=== PATIENT | male | born 2000 | race Caucasian/White ===

== ENCOUNTER 2020-08-24 00:53 | Emergency (ER) | payer OTHER ==
[2020-08-24] MEDS ORDERED: OXYMETAZOLINE HCL 100 SPRAYS BOTTLE NAS STA (02:01)
--- NOTE | 2020-08-24 02:31 | ED Physician Documentation ---
PD HPI HEENT - Stated complaint Stated Complaint: NOSE BLEED - Chief complaint Chief Complaint: Heent - History obtained from History obtained from: Patient - History of Present Illness Timing - onset: How many days ago (3) Timing - duration: Days (3) Timing - details: Gradual onset, Still present Location: Nose Improves: Other (pinching) Associated symptoms: No: Fever, Congestion, Rhinorrhea, Trismus, Unable to swallow, Swollen nodes, Facial swelling, Headache, Cough Similar symptoms before: Has not had sx before Recently seen: Not recently seen - Additional information Additional information: 20-year-old male previously healthy has developed nasal bleeding. He states that over the last 3 days this is happened about 10 times. He is awakened in a puddle of blood he is usually been able to get the bleeding stopped fairly easily. He is not having bleeding currently. Review of Systems Constitutional: denies: Fever Eyes: denies: Decreased vision Ears: denies: Ear pain Nose: reports: Epistaxis. denies: Rhinorrhea / runny nose, Congestion, Sinus pressure / pain, Foreign Body Throat: denies: Sore throat Respiratory: denies: Cough GI: denies: Vomiting PD PAST MEDICAL HISTORY - Past Medical History Past Medical History: No - Past Surgical History Past Surgical History: Yes Ortho: Other - Present Medications Home Medications: Ambulatory Orders Medication Instructions Recorded Confirmed No Known Home Medications 08/24/20 08/24/20 - Allergies Allergies/Adverse Reactions: Allergies Allergy/AdvReac Type Severity Reaction Status Date / Time No Known Drug Allergies Allergy Verified 08/24/20 01:07 - Social History Does the pt smoke?: No Smoking Status: Never smoker Does the pt drink ETOH?: Yes Does the pt have substance abuse?: No - Immunizations Immunizations are current?: Yes - POLST Patient has POLST: No PD ED PE NORMAL - Vitals Vital signs reviewed: Yes (Hypertensive) - General General: Alert and oriented X 3, No acute distress, Well developed/nourished - HEENT HEENT: Atraumatic, PERRL, EOMI, Other (There is no current bleeding present there is evidence of recent bleeding bilaterally along Marcellus's plexus and the vessels appear mildly engorged.) - Respiratory Respiratory: No respiratory distress - Derm Derm: Normal color, Warm and dry, No rash - Extremities Extremities: No deformity, No edema - Neuro Neuro: Alert and oriented X 3, 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 2-12 intact, No motor deficit, No sensory deficit, Normal speech Eye Opening: Spontaneous Motor: Obeys Commands Verbal: Oriented GCS Score: 15 - Psych Psych: Normal mood, Normal affect Results - Vitals Vitals: Vital Signs - 24 hr 08/24/20 08/24/20 08/24/20 01:07 01:13 02:41 Temperature 36.6 C 36.6 C 36.6 C Heart Rate 75 75 72 Respiratory 16 16 16 Rate Blood Pressure 137/73 H 137/73 H 135/69 H O2 Saturation 99 99 99 Oxygen O2 Source Room air PD MEDICAL DECISION MAKING - ED course Complexity details: considered differential, d/w patient ED course: 20-year-old male with report of frequent nasal epistaxis has dried blood on his nares and examination shows engorged vessels in Marcellus's plexus no recurrent bleeding. I did administer oxymetazoline to the patient for a more thorough examination did not find additional findings. He is instructed to use a small amount of Vaseline inside of his nose and to use a clamp if he has recurrence of bleeding. I do not think that more aggressive treatment like silver nitrate cautery or placement of a packing is required or would be of benefit. Departure - Departure Disposition: 01 Home, Self Care Clinical Impression: Epistaxis Condition: Stable Instructions: ED Nosebleed Follow-Up: MIGUEL DORAN MD [Primary Care Provider] - Discharge Date/Time: 08/24/20 02:41
[2020-08-24 02:42] VITALS: BP 135/69
== END 2020-08-24 02:41 | disposition home or self-care (01) ==
LOC: ED 00:53
DX: R04.0 Epistaxis (principal)
CPT/HCPCS: 99282; A9270